=== PATIENT | male | born 1980 | race Caucasian/White ===

== ENCOUNTER 2020-11-21 10:04 | Emergency (ER) | payer BC, OTHER ==
[2020-11-21 10:26] VITALS: BMI 75.6
[2020-11-21] MEDS ORDERED: CASIRIVIMAB (REGN10933) 1,200 MG, IMDEVIMAB (REGN10987) 1,200 MG in SODIUM CHLORIDE 250 ML IVPB ONE (11:16)
[2020-11-21 11:31] LABS: HEMATOCRIT 45.4 % (35.4-49); HEMOGLOBIN 15.8 GM/dL (11.7-16.9); MCH 30.4 pg (25.7-33.7); MCHC 34.9 g/dl (32.0-35.9); MEAN CELL VOLUME 87.2 fl (80-96); MEAN PLT VOLUME 8.4 fl (7.5-11.1); PLATELET COUNT 156 K/MM3 (134-434); RBC 5.21 M/mm3 (4.00-5.60); RDW 13.2 % (11.9-15.9); WHITE BLOOD COUNT 4.9 K/mm3 (4.0-10.0)
[2020-11-21 12:00] LABS: POTASSIUM 4.7 mmol/L (3.5-5.1)
[2020-11-21 12:01] LABS: CALCIUM 9.4 mg/dL (8.5-10.1)
[2020-11-21 12:02] LABS: BLOOD UREA NITROGEN 8.5 mg/dL (7-18)
[2020-11-21 12:05] LABS: CREATININE 0.8 mg/dL (0.55-1.3)
[2020-11-21 14:06] VITALS: BP 123/72; PULSE 78; TEMP 99.1
== END 2020-11-21 14:18 | disposition home or self-care (01) ==
LOC: JER 10:04
PROC: 3E033GC Introduction of Other Therapeutic Substance into Peripheral Vein, Percutaneous Approach (ICD-10-PCS; principal; 2020-11-21)
DX: U07.1 COVID-19 (principal)
CPT/HCPCS: 36415; 80048; 85027; 99284-25; M0243; Q0243